=== PATIENT | female | born 1990 | race Two or more races ===

== ENCOUNTER 2024-05-14 10:32 | Inpatient (IN) | payer OTHER ==
[~2024-05-14] VITALS: Ht 157.5 cm; Wt 61.7 kg
[2024-05-29] VITALS (10 sets, daily range): BP systolic 107–151; BP diastolic 54–81
[2024-05-29] MEDS ORDERED: PRENATAL CAPLE1 EAC1 PO (05:50)
[2024-05-29] MEDS ORDERED: RINGERS SOLUTION,LACTATED 1,000 ML IV SCH (06:00)
[2024-05-29 07:56] LABS: PH,URINE 6.5 (5.0-8.0); URINE BILIRRUBIN Negative (NEGATIVE); URINE BLOOD Moderate; URINE COLOR Yellow; URINE GLUCOSE Negative (NEGATIVE); URINE NITRATE Negative; URINE PROTEIN Trace (NEGATIVE)
[2024-05-29 07:59] LABS: HEMATOCRIT 32.6 % (36.0-45.00); HEMOGLOBIN 11.3 g/dL (12.0-15.00); MEAN CELL VOLUME 84.6 fL (80.00-100.00); MEAN CORPUSCULAR HEMOGLOBIN 29.2 pg (27.00-32.0); MEAN CORPUSCULAR HGB CONC 34.5 g/dl (32.0-36.0); PLATELET COUNT 304 K/uL (150-450); RED BLOOD COUNT 3.85 M/uL (4.00-6.00); RED CELL DISTRIBUTION WIDTH 13.6 % (11.5-14.5)
[2024-05-29 08:16] LABS: INR 0.94; PARTIAL THROMBOPLASTIN TIME 25.1 SECONDS (22.0-34.0); PROTHROMBIN TIME 10.3 SECONDS (9.0-11.5)
[2024-05-29 08:36] LABS: ALBUMIN 3.1 gm/dL (3.4-5.0); BILIRUBIN TOTAL 0.44 mg/dL (0.3-1.2); CALCIUM 8.9 mg/dL (8.5-10.1); CREATININE SERUM 0.7 mg/dL (0.55-1.02); GFR 95.22; POTASSIUM 4.2 mEq/L (3.5-5.1); TOTAL PROTEIN 7.1 gm/dL (6.4-8.2)
[2024-05-29 09:10] LABS: URINE EPITHELIAL CELLS 65.5 uL (0.0-38.8); URINE RBC 6.9 uL (0.0-20.8); URINE WBC 48.5 uL (0.0-23.2)
[2024-05-29 09:12] LABS: URINE APPEARANCE Clear; URINE KETONE Negative (NEGATIVE); URINE LEUKOCYTE Trace; URINE UROBILINOGEN 0.2 E.U./dl
[2024-05-29 09:29] LABS: URINE CAST 0.58 uL (0.0-1.40)
[2024-05-29 09:35] LABS: URINE BACTERIA 141.91 uL (0.0-1933); URINE CRYSTALS MODERATE /HPF
[2024-05-29] MEDS ORDERED: OXYTOCIN 20 UNITS/500ML RL PIGGYBAG IV ONE (10:45)
[2024-05-29] MEDS ORDERED: MORPHINE SULFATE 4 MG/ML CARTRIDGE IV ONE (11:00)
[2024-05-29] MEDS ORDERED: OXYTOCIN 500 ML IV ONE (11:00)
[2024-05-29] MEDS ORDERED: CHLORHEXIDINE GLUCONATE 120 ML BOTTLE TOP ONE (13:18)
[2024-05-29] MEDS ORDERED: OXYTOCIN 20 UNITS/1000ML RL PIGGYBAG IV ONE (13:18)
[2024-05-29] MEDS ORDERED: ERYTHROMYCIN BASE OPHT 1GM EACH TUBE OP ONE ×2 (13:18→19:00)
[2024-05-29] MEDS ORDERED: LIDOCAINE HCL 1% 10ML VIAL ONE (13:19)
[2024-05-29] MEDS ORDERED: IBUprofen 400 MG TABLET PO ONE (17:52)
[2024-05-29] MEDS ORDERED: OXYTOCIN 1,000 ML IV ONE (18:00)
[2024-05-29] MEDS ORDERED: IBUprofen 400 MG TABLET PO PRN (18:00)
[2024-05-29] MEDS ORDERED: CHLORHEXIDINE GLUCONATE 120 ML BOTTLE TOP SCH (18:00)
[2024-05-29] MEDS ORDERED: LIDOCAINE HCL 1% 10ML VIAL IJ ONE (19:00)
[2024-05-30] VITALS: BP 111/71
[2024-05-30 06:50] LABS: HEMATOCRIT 27.4 % (36.0-45.00); HEMOGLOBIN 9.5 g/dL (12.0-15.00); MEAN CELL VOLUME 84.4 fL (80.00-100.00); MEAN CORPUSCULAR HEMOGLOBIN 29.3 pg (27.00-32.0); MEAN CORPUSCULAR HGB CONC 34.7 g/dl (32.0-36.0); PLATELET COUNT 287 K/uL (150-450); RED BLOOD COUNT 3.24 M/uL (4.00-6.00); RED CELL DISTRIBUTION WIDTH 13.8 % (11.5-14.5)
[2024-05-30 08:00] VITALS: BP 140/80
[2024-05-30] MEDS ORDERED: DOCUSATE SODIUM 100MG CAP PO SCH (09:00)
[2024-05-30] MEDS ORDERED: IRON FUM,PS/FOLIC ACID/VITC/B3 1 CAP CAPSULE PO SCH (09:00)
[2024-05-30 09:36] LABS: HEMATOCRIT 29.2 % (36.0-45.00); HEMOGLOBIN 9.7 g/dL (12.0-15.00); MEAN CELL VOLUME 85.9 fL (80.00-100.00); MEAN CORPUSCULAR HEMOGLOBIN 28.5 pg (27.00-32.0); MEAN CORPUSCULAR HGB CONC 33.1 g/dl (32.0-36.0); PLATELET COUNT 302 K/uL (150-450); RED BLOOD COUNT 3.41 M/uL (4.00-6.00); RED CELL DISTRIBUTION WIDTH 13.6 % (11.5-14.5)
[2024-05-30 10:16] LABS: ALBUMIN 2.7 gm/dL (3.4-5.0); BILIRUBIN TOTAL 0.5 mg/dL (0.3-1.2); CALCIUM 8.8 mg/dL (8.5-10.1); CREATININE SERUM 0.72 mg/dL (0.55-1.02); GFR 92.18; GLOBULINA 3.3 G/DL (2.4-3.5); POTASSIUM 3.89 mEq/L (3.5-5.1)
[2024-05-30 12:58] LABS: URINE APPEARANCE Clear; URINE BILIRRUBIN Negative (NEGATIVE); URINE BLOOD Large; URINE COLOR Yellow; URINE GLUCOSE Negative (NEGATIVE); URINE KETONE Negative (NEGATIVE); URINE LEUKOCYTE Moderate; URINE NITRATE Negative; URINE PROTEIN Trace (NEGATIVE); URINE UROBILINOGEN 0.2 E.U./dl
[2024-05-30 13:00] LABS: URINE BACTERIA 42.8 uL (0.0-1933); URINE RBC 1205.1 uL (0.0-20.8)
[2024-05-30 13:07] LABS: URINE CAST 0.44 uL (0.0-1.40)
[2024-05-30 16:00] VITALS: BP 115/77
[2024-05-30 20:00] VITALS: BP 129/82
[2024-05-31 00:35] VITALS: BP 121/78
[2024-05-31 08:00] VITALS: BP 129/60
== END 2024-05-31 14:20 | disposition home or self-care (01) | DRG 807 ==
LOC: LDR 05-29 05:46 → OB/GYN 05-29 16:39 → LDR 05-31 13:30 → OB/GYN 05-31 14:20
PROVIDERS: Obstetrics & Gynecology; Obstetrics & Gynecology Gynecology; ADMIT Obstetrics & Gynecology; ATTEND Obstetrics & Gynecology
PROC: 10D07Z6 Extraction of Products of Conception, Vacuum, Via Natural or Artificial Opening (ICD-10-PCS; principal; 2024-05-29)
PROC: 0KQM0ZZ Repair Perineum Muscle, Open Approach (ICD-10-PCS; 2024-05-29)
PROC: 4A1HXCZ Monitoring of Products of Conception, Cardiac Rate, External Approach (ICD-10-PCS; 2024-05-29)
DX: O70.1 Second degree perineal laceration during delivery (principal); Z37.0 Single live birth; O66.5 Attempted application of vacuum extractor and forceps; Z3A.39 39 weeks gestation of pregnancy